=== PATIENT | male | born 1930 | race Caucasian/White ===

== ENCOUNTER 2018-05-22 19:06 | Inpatient (IN) | payer MEDICARE, BC ==
[~2018-05-22] VITALS: Ht 177.8 cm; Wt 99.7 kg
[2018-05-22] MEDS ORDERED: TERA1CAP3 PO (19:23)
--- NOTE | 2018-05-22 19:29 | NUR ---
REPORT TO KERA LANTIGUA.
--- NOTE | 2018-05-22 20:18 | NUR ---
PT RESTING IN [facility]. AOX4. RESPS EVEN AND UNLABORED. DENIES ANY NEEDS AND CONCERNS AT THIS TIME.
--- NOTE | 2018-05-22 20:24 | NUR ---
PT DENIES PAIN MEDS AND RIGHT LOWER ABD PAIN DECREASED 4/10 AT THIS TIME.
--- NOTE | 2018-05-22 20:50 | NUR ---
PT RESTING IN [facility]. PT AOX4. RESPS EVEN AND UNLABORED. PAIN LEVEL DECREASED 3/10 AT THIS TIME. DENIES ANY NEEDS AND CONCERNS.
[2018-05-22] MEDS ORDERED: hydrALAzine 20 MG/ML, 1ML IVPush PRN (21:00)
[2018-05-22] MEDS ORDERED: morphine SULFATE 10 MG/ML, 1ML IVPush PRN (21:00)
[2018-05-22] MEDS ORDERED: LIDODERM 5% PATCH TD PRN (21:00)
[2018-05-22] MEDS ORDERED: ONDANSETRON 2MG/ML, 2ML IVPush PRN (21:00)
[2018-05-22] MEDS ORDERED: HYDROcodone/APAP 5/325 TABLET PO PRN (21:00)
[2018-05-22] MEDS ORDERED: TEMAZEPAM 15 MG CAPSULE PO PRN (21:00)
[2018-05-22] MEDS ORDERED: DOCUSATE 100 MG CAPSULE PO PRN (21:00)
[2018-05-22] MEDS ORDERED: ACETAMINOPHEN 325 MG TABLET PO PRN (21:00)
[2018-05-22 21:56] VITALS: BP 153/84
[2018-05-23 01:55] VITALS: BP 133/81
[2018-05-23 07:30] VITALS: BP 137/78
[2018-05-23] MEDS ORDERED: TERAZOSIN 1MG CAPSULE PO SCH ×2 (09:00→21:00)
[2018-05-23] MEDS ORDERED: MIDAZOLAM 1 MG/ML, 2ML ONE (09:17)
[2018-05-23] MEDS ORDERED: PHENYLEPHRINE 10 MG/ML ONE (09:25)
[2018-05-23] MEDS ORDERED: ROCURONIUM 10MG/ML,5ML ONE (09:37)
[2018-05-23] MEDS ORDERED: PROPOFOL 10 MG/ML, 20ML ONE (09:37)
[2018-05-23] MEDS ORDERED: DEXAMETHASONE 4 MG/ML, 1ML ONE (09:37)
[2018-05-23] MEDS ORDERED: LIDOCAINE-MPF 2% ,5ML ONE (09:37)
[2018-05-23] MEDS ORDERED: ONDANSETRON 2MG/ML, 2ML ONE (09:37)
[2018-05-23] MEDS ORDERED: FENTANYL PF 250 MCG/5ML ONE (09:37)
[2018-05-23] MEDS ORDERED: ACETAMINOPHEN 325 MG TABLET PO PRN (10:00)
[2018-05-23] MEDS ORDERED: HYDROmorphone 2 MG/ML, 1ML IVPush PRN (10:00)
[2018-05-23] MEDS ORDERED: hydrALAzine 20 MG/ML, 1ML IV PRN (10:00)
[2018-05-23] MEDS ORDERED: MEPERIDINE/PF 25MG/0.5ML IVPush PRN (10:00)
[2018-05-23] MEDS ORDERED: PROMETHAZINE 25 MG/ML, 1ML IV PRN (10:00)
[2018-05-23] MEDS ORDERED: HALOPERIDOL 5 MG/ML IV PRN (10:00)
[2018-05-23] MEDS ORDERED: OXYcodone 5 MG/5 ML ORAL.SOL UDC PO PRN (10:00)
[2018-05-23] MEDS ORDERED: FENTANYL PF 100 MCG/2ML IV PRN (10:00)
[2018-05-23] MEDS ORDERED: OMNIPAQUE 350 MG/ML, 50 ML BOTTLE INJ ONE (10:02)
[2018-05-23 11:47] LABS: BASOPHILS % (AUTO) 0 % (0-1); EOSINOPHILS # (AUTO) 0.16 x10^3/uL (0-0.4); EOSINOPHILS % (AUTO) 2 % (1-7); LYMPHOCYTES # (AUTO) 0.59 x10^3/uL (1-3.4); LYMPHOCYTES % (AUTO) 8 % (22-44); MD NO; MEAN CORPUSCULAR HEMOGLOBIN 34.4 pg (27.5-34.5); MEAN CORPUSCULAR HGB CONC 34.2 g/dL (33.2-36.2); MEAN CORPUSCULAR VOLUME 100.7 fL (81-97); MEAN PLATELET VOLUME 7.1 fL (7.4-10.4); MONOCYTES # (AUTO) 0.36 x10^3/uL (0.2-0.8); MONOCYTES % (AUTO) 5 % (2-9); NEUTROPHILS # (AUTO) 6.12 x10^3/uL (1.8-6.8); NEUTROPHILS % (AUTO) 85 % (42-75); PLATELET COUNT 187 x10^3/uL (130-400); RED BLOOD COUNT 3.98 x10^6/uL (4.38-5.82); RED CELL DISTRIBUTION WIDTH 12.7 % (9.4-14.8)
[2018-05-23 11:52] LABS: ALANINE AMINOTRANSFERASE 19 U/L (12-78); ALBUMIN 3.1 g/dL (3.4-5.0); ANION GAP 5 mmol/L (5-15); CALCIUM 8.2 mg/dL (8.5-10.1); CHLORIDE 108 mmol/L (98-107); CREATININE 1.34 mg/dL (0.7-1.3)
[2018-05-23 12:00] LABS: ALKALINE PHOSPHATASE 75 U/L (45-117); BILIRUBIN,TOTAL 0.7 mg/dL (0.2-1.0); TOTAL PROTEIN 6.5 g/dL (6.4-8.2)
[2018-05-23 13:56] VITALS: BP 139/82
[2018-05-23] MEDS: SODIUM CHLORIDE 0.45% 1,000 ML IV SCH (17:05)
[2018-05-23 17:39] LABS: CULTURE INDICATED? YES; MICROSCOPIC INDICATED
[2018-05-23 19:30] VITALS: BP 113/58
[2018-05-24] MEDS: SODIUM CHLORIDE 0.45% 1,000 ML IV SCH ×2 (01:53→09:00)
[2018-05-24 02:00] VITALS: BP 120/64
[2018-05-24 06:15] LABS: CHLORIDE 110 mmol/L (98-107)
[2018-05-24 06:18] LABS: BASOPHILS # (AUTO) 0.02 x10^3/uL (0-0.1); BASOPHILS % (AUTO) 0 % (0-1); EOSINOPHILS # (AUTO) 0.06 x10^3/uL (0-0.4); EOSINOPHILS % (AUTO) 1 % (1-7); LYMPHOCYTES # (AUTO) 1.24 x10^3/uL (1-3.4); LYMPHOCYTES % (AUTO) 15 % (22-44); MD NO; MEAN CORPUSCULAR HEMOGLOBIN 34.1 pg (27.5-34.5); MEAN CORPUSCULAR HGB CONC 33.6 g/dL (33.2-36.2); MEAN CORPUSCULAR VOLUME 101.4 fL (81-97); MEAN PLATELET VOLUME 7.4 fL (7.4-10.4); MONOCYTES # (AUTO) 0.61 x10^3/uL (0.2-0.8); MONOCYTES % (AUTO) 8 % (2-9); NEUTROPHILS # (AUTO) 6.09 x10^3/uL (1.8-6.8); NEUTROPHILS % (AUTO) 76 % (42-75); PLATELET COUNT 178 x10^3/uL (130-400); RED BLOOD COUNT 3.82 x10^6/uL (4.38-5.82); RED CELL DISTRIBUTION WIDTH 12.7 % (9.4-14.8)
[2018-05-24 06:46] LABS: ALANINE AMINOTRANSFERASE 17 U/L (12-78); ALKALINE PHOSPHATASE 75 U/L (45-117); ANION GAP 8 mmol/L (5-15); BILIRUBIN,TOTAL 0.5 mg/dL (0.2-1.0); CALCIUM 7.9 mg/dL (8.5-10.1); CREATININE 1.15 mg/dL (0.7-1.3); FOLATE LEVEL 7.2 ng/mL (3.1-17.5); FREE T4 (FREE THYROXINE) 1.11 ng/dL (0.76-1.46); THYROID STIMULATING HORMONE 0.685 mIU/L (0.358-3.740); TOTAL PROTEIN 6.4 g/dL (6.4-8.2)
[2018-05-24 07:25] VITALS: BP 165/83
[2018-05-24] MEDS ORDERED: CYANOCOBALAMIN 1,000 MCG/ML, 1ML IM ONE (08:30)
[2018-05-24 08:46] VITALS: BP 105/65
== END 2018-05-24 11:38 | disposition home or self-care (01) | DRG 660 ==
LOC: ED 21:00 → EDIP 21:18 → 3NE 22:36
PROVIDERS: ADMIT Internal Medicine; ATTEND Internal Medicine
PROC: 0TC68ZZ Extirpation of Matter from Right Ureter, Via Natural or Artificial Opening Endoscopic (ICD-10-PCS; 2018-05-23)
PROC: BT1D1ZZ Fluoroscopy of Right Kidney, Ureter and Bladder using Low Osmolar Contrast (ICD-10-PCS; 2018-05-23)
PROC: 0T768DZ Dilation of Right Ureter with Intraluminal Device, Via Natural or Artificial Opening Endoscopic (ICD-10-PCS; principal; 2018-05-23 10:15)
DX: N13.2 Hydronephrosis with renal and ureteral calculous obstruction (principal); E44.0 Moderate protein-calorie malnutrition; I10 Essential (primary) hypertension; N17.9 Acute kidney failure, unspecified; N40.0 Benign prostatic hyperplasia without lower urinary tract symptoms; Z83.3 Family history of diabetes mellitus
CPT/HCPCS: 36415; 74018; 76000; 80053; 81001; 82360; 82607; 82746; 83735; 84100; 84439; 84443; 85025; 87086; 88300; 90656; 99285; G0378; J1100; J2250; J2405; J2704; J3010; J3490; Q9967; C1769; C2617; J2270; J2370

== ENCOUNTER 2020-01-23 04:16 | Inpatient (IN) | payer MEDICARE, BC ==
[~2020-01-23] VITALS: Ht 180.3 cm; Wt 93.8 kg
[~2020-01-23 04:16] MED LIST: TERA1CAP3 PO
--- NOTE | 2020-01-23 04:34 | NUR ---
THIS IS A 89Y M BIB AMB FROM [facility], PT WAS SEEN THERE FOR WORSENING SOB X2 MONTHS WITH INC CP. PT FOUND TO HAVE BILAT SADDLE BAG PE. PT ARRIVED ON HEPARIN AT 10ML/ HR. PT SAT 95% RA NADN. PT CONNECTED TO ALL MONITORING VSS, NADN. CALL LIGHT IN REACH.
[2020-01-23 05:26] LABS: BASOPHILS # (AUTO) 0.02 x10^3/uL (0-0.1); BASOPHILS % (AUTO) 0 % (0-1); EOSINOPHILS # (AUTO) 0.01 x10^3/uL (0-0.4); EOSINOPHILS % (AUTO) 0 % (1-7); LYMPHOCYTES # (AUTO) 1.05 x10^3/uL (1-3.4); LYMPHOCYTES % (AUTO) 12 % (22-44); MD NO; MEAN CORPUSCULAR HEMOGLOBIN 35.1 pg (27.5-34.5); MEAN CORPUSCULAR HGB CONC 33.9 g/dL (33.2-36.2); MEAN CORPUSCULAR VOLUME 103.4 fL (81-97); MEAN PLATELET VOLUME 6.9 fL (7.4-10.4); MONOCYTES # (AUTO) 0.47 x10^3/uL (0.2-0.8); MONOCYTES % (AUTO) 6 % (2-9); NEUTROPHILS # (AUTO) 6.91 x10^3/uL (1.8-6.8); NEUTROPHILS % (AUTO) 82 % (42-75); PLATELET COUNT 156 x10^3/uL (130-400); RED BLOOD COUNT 4.01 x10^6/uL (4.38-5.82); RED CELL DISTRIBUTION WIDTH 13.2 % (9.4-14.8)
[2020-01-23 05:36] LABS: INTERNATIONAL NORMALIZED RATIO 1.1 (0.93-1.1); PROTHROMBIN TIME 11.3 Seconds (9.6-11.5)
[2020-01-23 05:38] LABS: ALANINE AMINOTRANSFERASE 21 U/L (12-78); ALBUMIN 2.7 g/dL (3.4-5.0); ANION GAP 9 mmol/L (5-15); CALCIUM 8.5 mg/dL (8.5-10.1); CHLORIDE 104 mmol/L (98-107); CREATININE 0.83 mg/dL (0.7-1.3)
[2020-01-23 05:42] LABS: ALKALINE PHOSPHATASE 77 U/L (45-117); BILIRUBIN,TOTAL 1.3 mg/dL (0.2-1.0); TOTAL PROTEIN 6.4 g/dL (6.4-8.2); TROPONIN I < 0.015 ng/mL (0.000-0.045)
[2020-01-23] MEDS ORDERED: HEPARIN 5,000 UNITS/ML, 1ML IV ONE (06:00)
[2020-01-23] MEDS: HEPARIN 5,000 UNITS/ML, 1ML IV PRN ×2 (06:54→11:57)
--- NOTE | 2020-01-23 06:55 | NUR ---
REPORT TO LACY LANTIGUABLOWER BLAST FURNACE OF CARE AT THIS TIME
--- NOTE | 2020-01-23 06:56 | NUR ---
REPORT RECEIVED FROM MAX LANTIGUA. PER MAX LANTIGUA HEPARIN WAS INFUSING STAFF EDUCATOR AT 10ML/HR OR 1000UNITS/HR. CURRENTLY STILL INFUSING AT THIS RATE. PT RESTING ON GURNEY W/ CALL LIGHT IN REACH AND SIDE RAILS UPX2. PT PROVIDED W/ URINAL PER PT REQUEST. RESP EVEN AND UNLABORED, MAXIMILIAN. AWAITING ADMIT.
--- NOTE | 2020-01-23 07:05 | NUR ---
TELEPHONE CALL TO PHARMACY REGARDING HEPARIN DOSE. PER LUPIS GATES TO LEAVE HEPARIN INFUSING AT 1000 UNITS/HR (10ML/HR) SINCE ANTI XA IS WITHIN NORMAL LIMITS.
[2020-01-23] MEDS: HEPARIN 25,000 UNITS/250ML PMX 250 ML IV PRN (07:28)
--- NOTE | 2020-01-23 07:29 | NUR ---
SPOKE W/ DR.VAN MUNOZ REGARDING HEPARIN RATE. PER MD, WOULD LIKE TO KEEP HEPARIN WITHIN OUR PROTOCOL AND CHANGE RATE TO 900UNITS/HR. HEPARIN RATE CHANGED AND VERIFIED W/ ARMANI LANTIGUA.
--- NOTE | 2020-01-23 07:40 | NUR ---
REPORT GIVEN TO CHRIS LANTIGUA. PT IS READY FOR TRANSPORT AT THIS TIME W/ HEAPRIN INFUSING.
[2020-01-23] MEDS ORDERED: TEMAZEPAM 15 MG CAPSULE PO PRN (08:00)
[2020-01-23] MEDS ORDERED: GUAIFENESIN/COD200MG-20MG/10ML LIQUID PO PRN (08:00)
[2020-01-23] MEDS ORDERED: ONDANSETRON 2MG/ML, 2ML IVPush PRN (08:00)
[2020-01-23 09:04] VITALS: BP 154/81
[2020-01-23] MEDS: FAMOTIDINE 20 MG TABLET PO SCH ×2 (09:50→20:11)
[2020-01-23 14:48] VITALS: BP 151/79
[2020-01-23] MEDS: LACTATED RINGERS 1,000 ML IV SCH (17:46)
[2020-01-23 18:54] VITALS: BP 142/73
[2020-01-23] MEDS: TERAZOSIN 5MG CAPSULE PO SCH (20:11)
[2020-01-24 01:30] VITALS: BP 136/66
[2020-01-24 01:45] LABS: BASOPHILS # (AUTO) 0.02 x10^3/uL (0-0.1); BASOPHILS % (AUTO) 0 % (0-1); EOSINOPHILS # (AUTO) 0.09 x10^3/uL (0-0.4); EOSINOPHILS % (AUTO) 1 % (1-7); LYMPHOCYTES # (AUTO) 0.93 x10^3/uL (1-3.4); LYMPHOCYTES % (AUTO) 13 % (22-44); MD NO; MEAN CORPUSCULAR HEMOGLOBIN 34.5 pg (27.5-34.5); MEAN CORPUSCULAR HGB CONC 33.5 g/dL (33.2-36.2); MEAN CORPUSCULAR VOLUME 103.2 fL (81-97); MEAN PLATELET VOLUME 7.4 fL (7.4-10.4); MONOCYTES # (AUTO) 0.57 x10^3/uL (0.2-0.8); MONOCYTES % (AUTO) 8 % (2-9); NEUTROPHILS # (AUTO) 5.46 x10^3/uL (1.8-6.8); NEUTROPHILS % (AUTO) 77 % (42-75); PLATELET COUNT 162 x10^3/uL (130-400); RED BLOOD COUNT 3.98 x10^6/uL (4.38-5.82); RED CELL DISTRIBUTION WIDTH 13.3 % (9.4-14.8)
[2020-01-24] MEDS: HEPARIN 25,000 UNITS/250ML PMX 250 ML IV PRN (01:45)
[2020-01-24 01:49] LABS: ANION GAP 10 mmol/L (5-15); CALCIUM 8.4 mg/dL (8.5-10.1); CHLORIDE 103 mmol/L (98-107)
[2020-01-24] MEDS: LACTATED RINGERS 1,000 ML IV SCH ×2 (05:35→20:00)
[2020-01-24 07:22] VITALS: BP 115/71
[2020-01-24] MEDS: FAMOTIDINE 20 MG TABLET PO SCH ×2 (10:29→20:41)
[2020-01-24] MEDS ORDERED: POTASSIUM PHOSPHATE 22 MEQ in SODIUM CHLORIDE 0.9% 500 ML IV ONE (10:30)
[2020-01-24] MEDS: morphine SULFATE 10 MG/ML, 1ML IVPush PRN ×2 (11:36→15:40)
[2020-01-24 12:44] VITALS: BP 120/68
[2020-01-24 19:16] VITALS: BP 127/74
[2020-01-24] MEDS: TERAZOSIN 5MG CAPSULE PO SCH (20:41)
[2020-01-25 01:01] VITALS: BP 134/79
[2020-01-25] MEDS: LACTATED RINGERS 1,000 ML IV SCH ×2 (05:04→19:45)
[2020-01-25 06:00] LABS: BASOPHILS % (AUTO) 0 % (0-1); EOSINOPHILS # (AUTO) 0.01 x10^3/uL (0-0.4); EOSINOPHILS % (AUTO) 0 % (1-7); LYMPHOCYTES # (AUTO) 0.63 x10^3/uL (1-3.4); LYMPHOCYTES % (AUTO) 8 % (22-44); MD NO; MEAN CORPUSCULAR HGB CONC 32.8 g/dL (33.2-36.2); MEAN CORPUSCULAR VOLUME 103.8 fL (81-97); MEAN PLATELET VOLUME 6.9 fL (7.4-10.4); MONOCYTES # (AUTO) 0.58 x10^3/uL (0.2-0.8); MONOCYTES % (AUTO) 7 % (2-9); NEUTROPHILS # (AUTO) 6.83 x10^3/uL (1.8-6.8); NEUTROPHILS % (AUTO) 85 % (42-75); PLATELET COUNT 182 x10^3/uL (130-400); RED BLOOD COUNT 3.71 x10^6/uL (4.38-5.82)
[2020-01-25 06:03] LABS: CHLORIDE 104 mmol/L (98-107)
[2020-01-25 06:16] LABS: ANION GAP 8 mmol/L (5-15); CALCIUM 8.6 mg/dL (8.5-10.1); CREATININE 0.69 mg/dL (0.7-1.3); PSA SCREEN 2.39 ng/mL (0.00-4.00)
[2020-01-25] MEDS: HEPARIN 5,000 UNITS/ML, 1ML IV PRN (07:10)
[2020-01-25] MEDS: FAMOTIDINE 20 MG TABLET PO SCH ×2 (10:28→20:22)
[2020-01-25] MEDS: morphine SULFATE 10 MG/ML, 1ML IVPush PRN (11:15)
[2020-01-25 11:19] VITALS: BP 92/61
[2020-01-25 13:10] VITALS: BP 132/74
[2020-01-25] MEDS ORDERED: OXYcodone IR 5MG TABLET PO PRN (14:30)
[2020-01-25] MEDS ORDERED: ALBUMIN HUMAN 25% 100 ML IV ONE (14:30)
[2020-01-25] MEDS: ENOXAPARIN 100 MG/ML SQ SCH (14:41)
[2020-01-25] MEDS: OXYcodone IR 5MG TABLET PO PRN ×3 (14:42→23:41)
[2020-01-25] MEDS: DOCUSATE 100 MG CAPSULE PO PRN (17:52)
[2020-01-25] MEDS ORDERED: SODIUM CHLORIDE NASAL SPRAY 45ML BOTTLE NAS PRN (18:00)
[2020-01-25 19:12] VITALS: BP 138/88
[2020-01-25] MEDS: TERAZOSIN 5MG CAPSULE PO SCH (20:22)
[2020-01-26 02:00] VITALS: BP 132/81
[2020-01-26] MEDS: ENOXAPARIN 100 MG/ML SQ SCH ×2 (03:23→14:36)
[2020-01-26] MEDS: LACTATED RINGERS 1,000 ML IV SCH (05:03)
[2020-01-26 06:45] LABS: BASOPHILS # (AUTO) 0.01 x10^3/uL (0-0.1); BASOPHILS % (AUTO) 0 % (0-1); EOSINOPHILS # (AUTO) 0.09 x10^3/uL (0-0.4); EOSINOPHILS % (AUTO) 2 % (1-7); LYMPHOCYTES # (AUTO) 0.71 x10^3/uL (1-3.4); LYMPHOCYTES % (AUTO) 12 % (22-44); MD NO; MEAN CORPUSCULAR HEMOGLOBIN 34.3 pg (27.5-34.5); MEAN CORPUSCULAR HGB CONC 33.1 g/dL (33.2-36.2); MEAN CORPUSCULAR VOLUME 103.5 fL (81-97); MEAN PLATELET VOLUME 6.9 fL (7.4-10.4); MONOCYTES # (AUTO) 0.54 x10^3/uL (0.2-0.8); MONOCYTES % (AUTO) 9 % (2-9); NEUTROPHILS # (AUTO) 4.82 x10^3/uL (1.8-6.8); NEUTROPHILS % (AUTO) 78 % (42-75); PLATELET COUNT 194 x10^3/uL (130-400); RED BLOOD COUNT 3.34 x10^6/uL (4.38-5.82)
[2020-01-26 06:51] LABS: ANION GAP 7 mmol/L (5-15); CALCIUM 8.6 mg/dL (8.5-10.1); CHLORIDE 105 mmol/L (98-107); CREATININE 0.61 mg/dL (0.7-1.3)
[2020-01-26 07:07] VITALS: BP 126/74
[2020-01-26 09:30] VITALS: BP 134/81
[2020-01-26] MEDS: FAMOTIDINE 20 MG TABLET PO SCH ×2 (09:36→20:48)
[2020-01-26] MEDS: METOPROLOL TARTRATE 25 MG TAB PO SCH ×2 (09:36→17:27)
[2020-01-26] MEDS: OXYcodone IR 5MG TABLET PO PRN ×2 (09:37→20:48)
[2020-01-26 13:28] VITALS: BP 107/67
[2020-01-26] MEDS: CEFTRIAXONE PMX 1GM/50ML 50 ML IV SCH (14:36)
[2020-01-26] MEDS: DOXYCYCLINE 100MG CAP PO SCH ×2 (14:36→20:47)
[2020-01-26] MEDS: POTASSIUM CHLORIDE 20 MEQ TAB.ER.PRT PO SCH (17:00)
[2020-01-26 18:21] VITALS: BP 110/72
[2020-01-26] MEDS: ACETAMINOPHEN 325 MG TABLET PO PRN (20:47)
[2020-01-26] MEDS: TERAZOSIN 5MG CAPSULE PO SCH (20:48)
[2020-01-26] MEDS: DOCUSATE 100 MG CAPSULE PO PRN (20:49)
[2020-01-27] VITALS (7 sets, daily range): BP systolic 91–145; BP diastolic 55–82
[2020-01-27] MEDS: ENOXAPARIN 100 MG/ML SQ SCH ×2 (01:59→15:08)
[2020-01-27] MEDS: METOPROLOL TARTRATE 25 MG TAB PO SCH ×2 (06:15→18:00)
[2020-01-27] MEDS: ACETAMINOPHEN 325 MG TABLET PO PRN (06:15)
[2020-01-27] MEDS: POTASSIUM CHLORIDE 20 MEQ TAB.ER.PRT PO SCH ×2 (06:15→17:00)
[2020-01-27 06:17] LABS: BASOPHILS # (AUTO) 0.01 x10^3/uL (0-0.1); BASOPHILS % (AUTO) 0 % (0-1); EOSINOPHILS # (AUTO) 0.17 x10^3/uL (0-0.4); EOSINOPHILS % (AUTO) 3 % (1-7); LYMPHOCYTES # (AUTO) 0.78 x10^3/uL (1-3.4); LYMPHOCYTES % (AUTO) 14 % (22-44); MD NO; MEAN CORPUSCULAR HEMOGLOBIN 34.3 pg (27.5-34.5); MEAN CORPUSCULAR HGB CONC 33.4 g/dL (33.2-36.2); MEAN CORPUSCULAR VOLUME 102.8 fL (81-97); MEAN PLATELET VOLUME 7.3 fL (7.4-10.4); MONOCYTES # (AUTO) 0.53 x10^3/uL (0.2-0.8); MONOCYTES % (AUTO) 10 % (2-9); NEUTROPHILS # (AUTO) 3.96 x10^3/uL (1.8-6.8); NEUTROPHILS % (AUTO) 73 % (42-75); PLATELET COUNT 223 x10^3/uL (130-400); RED BLOOD COUNT 3.45 x10^6/uL (4.38-5.82); RED CELL DISTRIBUTION WIDTH 13.1 % (9.4-14.8)
[2020-01-27 06:27] LABS: ANION GAP 6 mmol/L (5-15); CALCIUM 9.2 mg/dL (8.5-10.1); CHLORIDE 105 mmol/L (98-107)
[2020-01-27 06:28] LABS: CREATININE 0.63 mg/dL (0.7-1.3)
[2020-01-27] MEDS: DOXYCYCLINE 100MG CAP PO SCH ×2 (08:27→20:39)
[2020-01-27] MEDS: FAMOTIDINE 20 MG TABLET PO SCH ×2 (08:27→20:39)
[2020-01-27] MEDS: DOCUSATE 100 MG CAPSULE PO PRN (08:28)
[2020-01-27] MEDS: ACETAMINOPHEN 325 MG TABLET PO SCH ×3 (12:25→23:48)
[2020-01-27] MEDS: CEFTRIAXONE PMX 1GM/50ML 50 ML IV SCH (15:08)
[2020-01-27] MEDS ORDERED: ALBUMIN HUMAN 25% 100 ML IV ONE (17:30)
[2020-01-27] MEDS: TERAZOSIN 5MG CAPSULE PO SCH (20:39)
[2020-01-28 00:56] VITALS: BP 153/91
[2020-01-28] MEDS: ENOXAPARIN 100 MG/ML SQ SCH (02:19)
[2020-01-28 05:35] VITALS: BP 128/72
[2020-01-28] MEDS: ACETAMINOPHEN 325 MG TABLET PO SCH ×2 (05:36→12:12)
[2020-01-28] MEDS: METOPROLOL TARTRATE 25 MG TAB PO SCH (05:37)
[2020-01-28 06:39] VITALS: BP 142/77
[2020-01-28] MEDS: FAMOTIDINE 20 MG TABLET PO SCH (08:36)
[2020-01-28] MEDS: POTASSIUM CHLORIDE 20 MEQ TAB.ER.PRT PO SCH (08:36)
[2020-01-28] MEDS: DOXYCYCLINE 100MG CAP PO SCH (08:36)
[2020-01-28 12:25] VITALS: BP 149/78
[2020-01-28] MEDS: CEFTRIAXONE PMX 1GM/50ML 50 ML IV SCH (14:00)
[2020-01-28] MEDS ORDERED: METO25TA35 PO (14:07)
[2020-01-28] MEDS ORDERED: OXYC5TAB3 PO (14:07)
[2020-01-28] MEDS ORDERED: Guaifenesin/Cod200mg-20MG/10ML PO (14:07)
[2020-01-28] MEDS ORDERED: ACET325T26 PO (14:07)
[2020-01-28] MEDS ORDERED: FAMO20TA7 PO ×2 (14:07)
[2020-01-28] MEDS ORDERED: APIX5TAB PO (14:15)
[2020-01-28] MEDS ORDERED: APIXABAN 5 MG TABLET PO SCH (14:30)
[2020-01-28] MEDS ORDERED: AMOX1TAB64 PO (14:50)
[2020-01-28] MEDS ORDERED: PANT40TA3 PO (15:48)
[2020-02-04] MEDS ORDERED: APIXABAN 5 MG TABLET PO SCH (09:00)
== END 2020-01-28 17:49 | disposition home or self-care (01) | DRG 177 ==
LOC: ED 05:59 → EDIP 06:38 → 4WST 07:52
PROVIDERS: ADMIT Hospitalist; ATTEND Internal Medicine
DX: J15.6 Pneumonia due to other Gram-negative bacteria (principal); I26.92 Saddle embolus of pulmonary artery without acute cor pulmonale; I82.819 Embolism and thrombosis of superficial veins of unspecified lower extremity; I82.511 Chronic embolism and thrombosis of right femoral vein; I82.531 Chronic embolism and thrombosis of right popliteal vein; J98.11 Atelectasis; I48.91 Unspecified atrial fibrillation; N40.0 Benign prostatic hyperplasia without lower urinary tract symptoms; M19.90 Unspecified osteoarthritis, unspecified site; E88.09 Other disorders of plasma-protein metabolism, not elsewhere classified; D75.89 Other specified diseases of blood and blood-forming organs; Z87.442 Personal history of urinary calculi; Z87.891 Personal history of nicotine dependence
CPT/HCPCS: 36415; 71046; 80048; 80053; 82962; 83735; 84100; 84443; 84484; 85025; 85520; 85610; 93005; 93306; 93970; 99285; G0103; G0378; J0696; J1644; J1650; P9047; J2270; J7040; J7120